=== PATIENT | male | born 1980 | race Caucasian/White ===

== ENCOUNTER 2021-07-09 16:54 | Emergency (ER) | payer OTHER ==
[2021-07-09 17:59] VITALS: BP 154/92; PULSE 72; TEMP 98.1; BMI 29.0
[2021-07-09] MEDS ORDERED: DIPHTH,PERTUSS(ACELL),TET 0.5 ML DISP.SYRIN IM ONE ×2 (18:20→18:22)
== END 2021-07-09 18:40 | disposition home or self-care (01) ==
LOC: JER 16:54
PROC: 3E0234Z Introduction of Serum, Toxoid and Vaccine into Muscle, Percutaneous Approach (ICD-10-PCS; principal; 2021-07-09)
DX: S61.011A Laceration without foreign body of right thumb without damage to nail, initial encounter (principal)
CPT/HCPCS: 73140-TC-RT-FY; 90471; 90715; 99284-25

== ENCOUNTER 2022-12-26 09:43 | Emergency (ER) | payer OTHER ==
[2022-12-26 09:50] VITALS: BP 130/90; PULSE 83; RESP 18; TEMP 97.8; BMI 30.2
[2022-12-26] MEDS ORDERED: TETRACAINE 0.5% OPHTH SOLN 2 ML BOTTLE OD ONE (11:50)
[2022-12-26] MEDS ORDERED: TETRACAINE 0.5% OPHTH SOLN 2 ML BOTTLE ONE (11:51)
[2022-12-26] MEDS ORDERED: FLUORESCEIN NA 1 EA STRIP ONE (11:51)
[2022-12-26] MEDS ORDERED: FLUORESCEIN NA 1 EA STRIP OD ONE (11:51)
== END 2022-12-26 12:19 | disposition home or self-care (01) ==
LOC: JERFT 09:43 → JER 09:43 → JERFT 12:19
DX: S05.01XA Injury of conjunctiva and corneal abrasion without foreign body, right eye, initial encounter (principal); H57.89 Other specified disorders of eye and adnexa; X58.XXXA Exposure to other specified factors, initial encounter
CPT/HCPCS: 99283-25